=== PATIENT | female | born 1990 | race Caucasian/White ===

== ENCOUNTER 2018-05-16 05:43 | Observation (INO) | payer SELFPAY ==
[2018-05-16] MEDS ORDERED: LACTATED RINGERS 1,000 ML IV ONE (05:58)
[2018-05-16 07:20] LABS: Hematocrit 35.2 % (30.3-42.9); Hemoglobin 11.7 gm/dl (10.1-14.3); Mean Corpuscular HGB Conc 33 % (30-34); Mean Corpuscular Hemoglobin 28 pg (28-32); Mean Corpuscular Volume 84 fl (79-97); Platelet Count 361 K/mm3 (140-440); Red Blood Count 4.17 M/mm3 (3.65-5.03); Red Cell Distribution Width 13.7 % (13.2-15.2)
[2018-05-16] MEDS ORDERED: BRETHINE ONE (08:35)
[2018-05-16] MEDS ORDERED: BRETHINE SUB-Q ONE ×2 (08:41→12:00)
[2018-05-16] MEDS ORDERED: CELESTONE SOLUSPAN IM ONE (08:59)
[2018-05-16 09:46] LABS: Bacteria,Urine 2+ /HPF (Negative); Bilirubin,Urine NEG (Negative); Blood,Urine NEG (Negative); Calcium Oxalate Crystals,Urine 3+; Color,Urine Yellow (Yellow); Mucus,Urine 3+ /HPF; Urobilinogen,Urine < 2.0 mg/dL (<2.0)
[2018-05-16] MEDS ORDERED: TYLENOL PO ONE (09:53)
[2018-05-16] MEDS ORDERED: CLEOCIN PO SCH (10:30)
[2018-05-16] MEDS ORDERED: LACTATED RINGERS 1,000 ML IV SCH ×2 (11:00→13:00)
[2018-05-16] MEDS ORDERED: POLYCILLIN/NS 2 GM/100 ML 2 GM/100 ML BAG IV SCH (11:00)
--- NOTE | 2018-05-16 11:18 | Ultrasound Report ---
FINAL REPORT EXAM: OB US FOLLOW-UP PER FETUS HISTORY: position, estimated weigh and PETRA TECHNIQUE: Transabdominal OB ultrasound. PRIORS: None currently available. FINDINGS: Single intrauterine dates 30.1 weeks. BRITANY equals May 29, 2018. This is 22 days older compared to the LMP and discordant. EFW equals 3824 g. BPD: 37.3 weeks. HC: 36.3 weeks. AC: 41.4 weeks. FL: 37.2 weeks. Presentation: Cephalic. Placenta: Anterior fundal. Grade 1. No previa. heart rate: 141 BPM. Amniotic fluid index: 20.9 cm. Within normal limits. Closed cervix measures 4.4 cm. IMPRESSION: Single live intrauterine . Ultrasound gestational age is discordant with LMP age. Please correlate clinically. Vince level II finding report initiated.
[2018-05-16] MEDS ORDERED: TYLENOL PO PRN (11:54)
[2018-05-16 15:33] LABS: Rubella IgG Antibody Immune (Immune)
--- NOTE | 2018-05-16 15:33 | History and Physical Report ---
History of Present Illness Date of examination: 05/16/18 Date of admission: 05/16/18 12:52 Chief complaint: Contractions History of present illness: 28 year old presents to L&D with complaint of contractions since early this morning. Patient denies leaking of fluid or vaginal bleeding. Patient reports active movement. Patient states she is seen for care at [facility]. Patient states she has received regular prental care since her first trimester of . We do not have records available in L&D. Patient states she has not been given her records by the office to bring in. Patient states she had a first trimester US at [facility] and states she was given a due date of 06/20. By this EDC, patient would be 35 weeks gestation today. Patient states her last period was in the middle of September ( or Sep) 2016. This would agree with EDC of 06/20/18. Since no records were available, US was done in triage today, which shows EDC of 05/29/18 and EGA of 38 weeks, 1 day gestation. EFW by today's US is 8 lb. 7 oz. labs were also drawn after patient's arrival to hospital today due to no records available. Patient states she just took her 1 hour sugar test at clinic last week but does not know the result of the test yet. Patient denies complications with this . States the only medication she has been taking is vitamin ( but hasn't taken this in several months). Patient has a history of 2 previous NSVDs (8 years ago and 9 years ago) of normal sized babies. She has a history of one first trimester miscarriage. Patient denies any health problems other than obesity. She states she does not smoke, drink, or take drugs. She feels safe in her current relationship. She denies any history of surgeries. She denies any history of STDs or FRAMING CARPENTER problems. She states she has never had herpes. Patient reports a boil on her lower abdomen which has been there for several days and is now ready to drain. She reports discomfort associated with the boil. Has not had a culture done yet. Has not had any treatment for. Past History Past Medical History: other (obesity) Past Surgical History: no surgical history FRAMING CARPENTER History: denies: abnormal PAP smear, chlamydia, gonorrhea, hepatitis B, hepatitis C, herpes, HIV, syphilis Family/Genetic History: diabetes (maternal grandmother) Social history: , lives with family, full code. denies: smoking, alcohol abuse, prescription drug abuse, IV drug use - Obstetrical History Expected Date of Delivery: 06/20/18 Actual Gestation: 35 Week(s) 0 Day(s) : 4 Para: 2 Hx # Term Pregnancies: 2 Number of Pregnancies: 1 Spontaneous Abortions: 1 Induced : 0 Number of Living Children: 2 Medications and Allergies Allergies Allergy/AdvReac Type Severity Reaction Status Date / Time No Known Allergies Allergy Unverified 05/09/15 05:58 Home Medications Medication Instructions Recorded Confirmed Last Taken Type No Known Home Medications [No 05/16/18 05/16/18 Unknown History Reported Home Medications] Active Meds: Active Medications Acetaminophen (Tylenol) 650 mg PO Q4H PRN PRN Reason: Pain MILD(1-3)/Fever >100.5/ROTH Betamethasone Acet/Betameth SodPhos (Celestone Soluspan) 12 mg IM Q24HR RODRICK Stop: 05/17/18 10:01 Ampicillin Sodium (Polycillin/Ns 2 Gm/100 Ml) 2 gm in 100 mls @ 100 mls/hr IV ONCE RODRICK; Protocol Last Admin: 05/16/18 10:39 Dose: 100 mls/hr Lactated Ringer's (Lactated Ringers) 1,000 mls @ 125 mls/hr IV DIRECT RODRICK Last Admin: 05/16/18 12:05 Dose: 125 mls/hr Ampicillin Sodium (Ampicillin/Ns 1 Gm/50 Ml) 1 gm in 50 mls @ 100 mls/hr IV Q4HR RODRICK; Protocol Lactated Ringer's (Lactated Ringers) 1,000 mls @ 125 mls/hr IV DIRECT RODRICK Multivitamins/Iron/Calcium ( Vitamin) 1 each PO QDAY RODRICK Review of Systems All systems: negative (contractions, boil on lower abdominal skin) - Vital Signs Vital signs: Vital Signs Pulse BP Pulse Ox 95 H 143/83 99 05/16/18 06:23 05/16/18 06:23 05/16/18 06:23 Temp Pulse Resp BP Pulse Ox 99.3 F 102 H 18 127/69 99 05/16/18 09:56 05/16/18 12:20 05/16/18 09:56 05/16/18 12:20 05/16/18 08:39 - Physical Exam Breasts: Positive: deferred Cardiovascular: Regular rate, Normal S1, Normal S2, No murmurs Lungs: Positive: Clear to auscultation Abdomen: Positive: normal appearance, soft, normal bowel sounds. Negative: distention, tenderness, guarding, rigidity Genitourinary (Female): Positive: normal external genitalia. Negative: perineal /vulvar lesions Vagina: Positive: normal moisture Cervix: Positive: other (30/-4/posterior) Uterus: Positive: enlarged. Negative: tender (size>dates) Anus/Rectum: Positive: normal perianal skin Extremities: Positive: normal. Negative: tenderness, edema - Obstetrical FHR: category 1 Uterine Contraction Monitor Mode: External Cervical Dilatation: 3 Cervical Effacement Percentage: 30 station: -4 Uterine Contraction Frequency (min): Irregular, resolving Uterine Contraction Pattern: Irregular Uterine Contraction Intensity: Mild Results Result Diagrams: 05/16/18 06:19 Abnormal lab results 05/16/18 05/16/18 05/16/18 Range/Units 06:19 08:00 09:01 WBC 14.6 H (4.5-11.0) K/mm3 Hemoglobin A1c 6.3 H (4-6) % Urine WBC (Auto) 65.0 H (0.0-6.0) /HPF U Epithel Cells (Auto) 15.0 H (0-13.0) /HPF All other labs normal. Assessment and Plan A: at 35 weeks gestation. GBS unknown status. Threatened labor. Maternal obesity. Size greater than dates. P: Admit for observation. Continuous EFM. IV fluids. Terbutaline for maximum of 3 doses. Contact isolation for boil; boil cultured. GBS prophylaxis. Urine C&S. labs and US and hemoglobin A1C. Celestone IM. Consulted with Dr. Dawson by phone regarding this patient and she states she is in agreement with the above management plan. Discussed management plan with patient and her and they state they are also in agreement with management plan.
[2018-05-16 15:54] LABS: Hepatitis C Virus Antibody Non-Reactive (NonReactive)
[2018-05-16] MEDS ORDERED: AMPICILLIN/NS 1 GM/50 ML 1 GM/50 ML BAG IV SCH (15:56)
[2018-05-16 20:13] VITALS: BP 122/61
--- NOTE | 2018-05-16 20:26 | Discharge Summary ---
Providers - Providers Date of Admission: 05/16/18 12:52 Date of discharge: 05/16/18 Attending physician: JENNY CROSS MD None Primary care physician: JENNY CRSOS MD Hospitalization Reason for admission: other (threatened labor) Delivery: other (not delivered; contractions have resolved) Pertinent studies: Labs, ultrasound. Hospital course: Patient was observed in the hospital today for threatened contractions. Her cervix was very posterior but was 3 cm dilated, thick, and head was high. She had continuous EFM. After IV hydration and SQ Brethine, her contractions resolved. Her urine was not a good clean catch but showed leukocytes and bacteria. Patient declined cath specimen. Patient was given IV antibiotics for possible UTI and GBS prophylaxis in the event that her contractions continued (they have now resolved). Patient had a boil on her lower abdomen; this burst and drained during patient's hospital stay today; a culture of the pus was sent to the lab to check for MRSA. heart rate tracing is category 1; NST reactive. Patient has not had any contractions for several hours. She states she is not in pain. There is no vaginal bleeding and no leaking of fluid. Fetus is moving actively. There is no flank pain and no CVAT. There is no fever or chills and vital signs are stable. Patient requests to be discharged. Consulted with Dr. Cross regarding patient and she states it is OK to discharge patient to home. Discussed in detail with patient discharge instructions and warning signs. Advised pt. to start the Macrobid tonight and take every 12 hours for 7 days. Advised pt. she must increase her water intake to 8 cups per day. Advised pt. to rest and avoid IC. Advised pt. that she must follow up at her OB clinic tomorrow 05/17/18 and find out her sugar test result (her hemoglobin A1C today is in pre-diabetic range). Advised patient that she needs to have her urine re-checked as a clean catch at her appointment tomorrow. Advised patient to eat only healthy foods and to avoid sweets, fast foods, and processed foods. Advised pt. to count movements every day and to return immediately if movement is decreased. Discussed with pt. care of boil, need to keep the area clean and dry, need for good handwashing to prevent spread, need to return if symptoms do not resolve promptly. Advised pt. to also return if she thinks she is in labor or if her water breaks or she has any vaginal bleeding. Patient voiced understanding of all instructions given. Condition at discharge: Good Disposition: DC-01 TO HOME OR SELFCARE - Discharge Diagnoses (1) Threatened labor Status: Acute Qualifiers: Trimester: third trimester Qualified Code(s): O47.03 - False labor before 37 completed weeks of gestation, third trimester Plan - Provider Discharge Summary Activity: routine Diet: other (avoid processed foods, sugary foods, fast foods) Additional instructions: Take Macrobid 100 mg po BID for 7 days (Rx for Macrobid called to [facility] on [address]). Pt. states she will pick Rx up as soon as she is discharged and begin taking it tonight. Avoid sexual intercourse; rest at home. Avoid sweets, sugary foods, processed foods, fast foods. Count movement at least daily. If you do not get 10 movements within 2 hours, you must come in. Follow up with your [facility] in the morning (Thursday05/17/18). Get the result of your 1 hour sugar test tomorrow at OB clinic. Drink 8 cups of water every day. Complete your antibiotic (Macrobid). Do not miss any doses. If you develop fever , chills, nausea, vomiting, flank pain, contractions, or any other symptoms, come back in. If baby is not moving well, come back in. If you think you are in labor, come back in. If you develop a headache, visual disturbance, nausea or vomiting, or swelling, come back in. - Follow up plan Follow up: JENNY CROSS MD [Primary Care Provider] - 05/17/18
[2018-05-17] MEDS ORDERED: PRENATAL VITAMIN PO SCH (10:00)
[2018-05-17] MEDS ORDERED: CELESTONE SOLUSPAN IM SCH (10:00)
== END 2018-05-16 21:30 | disposition home or self-care (01) ==
LOC: TRG 05:43 → LD 08:58 → TRG 12:52
PROVIDERS: ADMIT Obstetrics & Gynecology; ATTEND Obstetrics & Gynecology
DX: O62.9 Abnormality of forces of labor, unspecified (principal); O60.03 Preterm labor without delivery, third trimester; Z3A.35 35 weeks gestation of pregnancy
CPT/HCPCS: 36415; 76816; 81001; 83036; 85027; 86592; 86706; 86762; 86803; 86850; 86900; 86901; 87086; 87116; 87806; 96361; 96365; 96372; 96375; G0378; J0290; J0702; J3105; J7120

== ENCOUNTER 2018-05-20 18:15 | Outpatient (CLI) | payer SELFPAY ==
[2018-05-20] MEDS ORDERED: LACTATED RINGERS 500 ML IV ONE (18:53)
[2018-05-20 19:27] LABS: Bilirubin,Urine NEG (Negative); Blood,Urine NEG (Negative); Color,Urine Yellow (Yellow); Protein,Urine <15 mg/dL mg/dL (Negative); Urobilinogen,Urine < 2.0 mg/dL (<2.0)
[2018-05-20] MEDS ORDERED: BRETHINE ONE (20:54)
[2018-05-20 21:07] VITALS: BP 131/75
--- NOTE | 2018-05-20 21:25 | Event Note ---
28yo at 35 4/7weeks BRITANY 06/20/19 presents complaining of contractions and pelvic pressure.F She was observed on L&D 05/16/19 for contractions as well that resolved. Her cervix remains the same unchanged /-3. She received betamethasone for lung maturity and was discharged home undelivered. She was treated for a UTI. Today she denies loss of fluid, vaginal bleeding and reports good movement. She is aware her baby is large for gestational age. She states she has a history of gestational diabetes mellitus on no medications. She reports eating at least 3 tortillas per day. She states she his a patient of [facility] on [address] Murphy. Vitals Vital Signs Temp 98.5 F 05/20/18 18:57 Pulse 97 H 05/20/18 21:11 Resp 20 05/20/18 18:57 BP 131/75 05/20/18 21:11 Pulse Ox 97 05/20/18 20:06 Intake & Output 05/19/18 05/20/18 05/20/18 23:59 11:59 23:59 Weight 108.862 kg Laboratory Results - last 24 hr 05/20/18 18:45 Urine Color Yellow Urine Turbidity Clear Urine pH 6.0 Ur Specific Willard 1.012 Urine Protein <15 mg/dl Urine Glucose (UA) Neg Urine Ketones Neg Urine Blood Neg Urine Nitrite Neg Urine Bilirubin Neg Urine Urobilinogen < 2.0 Ur Leukocyte Esterase Mod Urine WBC (Auto) 7.0 H Urine RBC (Auto) 3.0 U Epithel Cells (Auto) 6.0 FHT 150s Category I Contractions Q 1-2min Plan 1. IV hydration 2. Terbutaline IM x 1 3. Monitor for sx of labor 4. s/p Betamethasone x 1. Will give second dose today. 5. If no labor, discharge home with labor precautions.
[2018-05-20] MEDS ORDERED: CELESTONE SOLUSPAN IM ONE (21:26)
[2018-05-20] MEDS ORDERED: BRETHINE SUB-Q ONE (21:50)
[2018-05-20] MEDS ORDERED: LACTATED RINGERS 1,000 ML IV ONE (21:50)
== END 2018-05-20 22:21 | disposition home or self-care (01) ==
LOC: TRG 18:15
PROVIDERS: ATTEND Obstetrics & Gynecology
DX: O47.03 False labor before 37 completed weeks of gestation, third trimester (principal); Z3A.35 35 weeks gestation of pregnancy
CPT/HCPCS: 59025; 81001; J0702; J3105; J7120

== ENCOUNTER 2018-06-07 15:55 | Inpatient (IN) | payer OTHER ==
[2018-06-07] MEDS ORDERED: LACTATED RINGERS 1,000 ML ONE (16:19)
[2018-06-07] MEDS ORDERED: XYLOCAINE 2% INFILTRATI ONE (16:46)
[2018-06-07] MEDS ORDERED: MINERAL OIL PO PRN (16:46)
[2018-06-07] MEDS ORDERED: BRETHINE IVP PRN (16:46)
[2018-06-07] MEDS ORDERED: BRETHINE SUB-Q PRN (16:46)
[2018-06-07] MEDS ORDERED: POLYCILLIN/NS 2 GM/100 ML 2 GM/100 ML BAG IV ONE (16:46)
[2018-06-07] MEDS ORDERED: ePHEDrine SULFATE IV PRN ×2 (16:46→20:20)
[2018-06-07] MEDS ORDERED: PITOCin/NS 30 UNIT/500ML 30 UNITS/500 ML BAG IV SCH (17:00)
[2018-06-07] MEDS ORDERED: PITOCin/NS 20 UNIT/1000ML DRIP 20 UNITS/1,000 ML BAG IV SCH (17:00)
[2018-06-07 17:37] LABS: Hemoglobin 11.2 gm/dl (10.1-14.3); Mean Corpuscular HGB Conc 33 % (30-34); Mean Corpuscular Hemoglobin 27 pg (28-32); Mean Corpuscular Volume 83 fl (79-97); Platelet Count 340 K/mm3 (140-440); Red Blood Count 4.11 M/mm3 (3.65-5.03); Red Cell Distribution Width 15.2 % (13.2-15.2)
[2018-06-07] MEDS ORDERED: STADOL IV PRN (17:38)
[2018-06-07] MEDS ORDERED: SUBLIMAZE IV PRN (17:38)
--- NOTE | 2018-06-07 18:47 | History and Physical Report ---
History of Present Illness Date of examination: 06/07/18 Date of admission: 06/07/18 16:45 Chief complaint: Leaking fluid History of present illness: 27yo G 4 P 2 0 1 2 at 38 weeks 1 day here with c/o leaking fluid since 14:20. SROM (light meconium) confirmed in triage by RN. She reports +FMs & UCs but denies VB. She is a [facility] patient who initiated care at 6 weeks gestation. Her course was complicated by obesity. record is available and reviewed. She has had 2 previous SVDs; uncomplicated. GBS is positive. Past History Past Medical History: other (h/o gestational diabetes - 1st ) Past Surgical History: no surgical history Family/Genetic History: none Social history: single, full code - Obstetrical History Expected Date of Delivery: 06/20/18 Actual Gestation: 38 Week(s) 1 Day(s) : 4 Para: 2 Hx # Term Pregnancies: 2 Number of Pregnancies: 0 Spontaneous Abortions: 1 Induced : 0 Number of Living Children: 2 Medications and Allergies Allergies Allergy/AdvReac Type Severity Reaction Status Date / Time No Known Allergies Allergy Verified 05/20/18 18:53 Home Medications Medication Instructions Recorded Confirmed Last Taken Type Macrobid 100 mg Capsule 100 mg PO BID 05/20/18 05/20/18 05/20/18 09:00 History Active Meds: Active Medications Butorphanol Tartrate (Stadol) 2 mg IV Q2H PRN PRN Reason: Pain , Severe (7-10) Ephedrine Sulfate (Ephedrine Sulfate) 10 mg IV Q2M PRN PRN Reason: Hypotension Fentanyl (Sublimaze) 100 mcg IV Q2H PRN PRN Reason: Labor Pain Lactated Ringer's (Lactated Ringers) 1,000 mls @ 125 mls/hr IV DIRECT RODRICK Oxytocin/Sodium Chloride (Pitocin/Ns 20 Unit/1000ml Drip) 20 units in 1,000 mls @ 125 mls/hr IV DIRECT RODRICK Oxytocin/Sodium Chloride (Pitocin/Ns 30 Unit/500ml) 30 units in 500 mls @ 1 mls /hr IV TITR RODRICK; Protocol Ampicillin Sodium (Ampicillin/Ns 1 Gm/50 Ml) 1 gm in 50 mls @ 100 mls/hr IV Q4HR RODRICK; Protocol Mineral Oil (Mineral Oil) 30 ml PO QHS PRN PRN Reason: Constipation Terbutaline Sulfate (Brethine) 0.25 mg SUB-Q ONCE PRN PRN Reason: Hyperstimulation/Hypertonicity Terbutaline Sulfate (Brethine) 0.25 mg IVP ONCE PRN PRN Reason: Hyperstimulation/Hypertonicity Review of Systems All systems: negative - Vital Signs Vital signs: Vital Signs Pulse BP 118 H 143/80 06/07/18 16:10 06/07/18 16:10 Temp Pulse Resp BP Pulse Ox 98.1 F 107 H 18 131/61 81 L 06/07/18 16:34 06/07/18 18:40 06/07/18 16:34 06/07/18 16:24 06/07/18 18:40 - Obstetrical FHR: category 2 FHR comments: baseline 165, mod variability, + accels, intermittent variable decels Uterine Contraction Monitor Mode: External Cervical Dilatation: 4 (per RN) Cervical Effacement Percentage: 80 (per RN) station: -2(per RN) Uterine Contraction Frequency (min): 1-2 Uterine Contraction Pattern: Regular Results Result Diagrams: 06/07/18 16:24 Abnormal lab results 06/07/18 Range/Units 16:24 WBC 13.0 H (4.5-11.0) K/mm3 MCH 27 L (28-32) pg All other labs normal. Assessment and Plan - Patient Problems (1) 38 weeks gestation of Current Visit: Yes Status: Acute (2) SROM (spontaneous rupture of membranes) Current Visit: Yes Status: Acute (3) Active labor at term Current Visit: Yes Status: Acute Plan to address problem: Admit to L&D with routine labor orders Anticipate vaginal delivery (4) GBS (group B Streptococcus carrier), +RV culture, currently Current Visit: Yes Status: Acute Plan to address problem: Start Ampicillin for GBS prophylaxis
[2018-06-07] MEDS: LACTATED RINGERS 1,000 ML IV SCH ×2 (19:48→20:26)
[2018-06-07] MEDS ORDERED: NARCAN 2 MG/2 ML IV PRN (20:20)
--- NOTE | 2018-06-07 20:20 | Anesthesia Consultation ---
Anesthesia Consult and Med Hx Date of service: 06/07/18 - Airway Anesthetic Teeth Evaluation: Good ROM Head & Neck: Adequate Mental/Hyoid Distance: Adequate Mallampati Class: Class III Intubation Access Assessment: Possibly Difficult - Pre-Operative Health Status ASA Pre-Surgery Classification: ASA3 Proposed Anesthetic Plan: Epidural, Spinal - Pulmonary Hx Asthma: No COPD: No Hx Pneumonia: No - Cardiovascular System Hx Hypertension: No - Central Nervous System Hx Seizures: No Hx Psychiatric Problems: No - Endocrine Hx Renal Disease: No Hx End Stage Renal Disease: No Hx Hypothyroidism: No Hx Hyperthyroidism: No - Hematic Hx Anemia: No Hx Sickle Cell Disease: No - Other Systems Hx Alcohol Use: No Hx Obesity: Yes (BMI 42.9)
[2018-06-07] MEDS ORDERED: fentaNYL-BUPIV 2 MCG/ML-0.125% 200 MCG/100 ML BAG EPIDURAL SCH (21:00)
[2018-06-07] MEDS: AMPICILLIN/NS 1 GM/50 ML 1 GM/50 ML BAG IV SCH (21:23)
[2018-06-08] MEDS: AMPICILLIN/NS 1 GM/50 ML 1 GM/50 ML BAG IV SCH (00:30)
[2018-06-08] MEDS ORDERED: XYLOCAINE 2% INFILTRATI ONE (02:45)
--- NOTE | 2018-06-08 03:27 | Procedure Note ---
OB Delivery Note - Delivery Date of Delivery: 06/08/18 (02:23) Surgeon: AG PATEL (CNM) Estimated blood loss: other (400cc) - Vaginal Delivery presentation: vertex Delivery position: OA Intrapartum events: meconium, shoulder dystocia (resolved in <1 min with Joey maneuver) Delivery induction: none Delivery augmentation: pitocin Delivery monitor: external FHT, external uterine Route of delivery: Delivery placenta: spontaneous (02:39) Delivery cord: nuchal cord (x1; easily reduced prior to delivery of anterior shoulder), 3 umbilical vessels Episiotomy: none Delivery laceration: 1st degree (vaginal - hemostatic; not repaired) Anesthesia: epidural Delivery comments: of a non-vigorous 10 lbs 1 oz female on 06/08/18 @ 02:23. After delivery of head, nuchal cord x1 noted and easily reduced. With gentle traction anterior shoulder undelivered. Shoulder dystocia called and was resolved in less than 1 min with McRobert's Maneuver. Umbilical cord immediately double-clamped, cut and baby handed to awaiting NICU team for resuscitation. Cord gases collected. Spontaneous delivery of placenta, [place]-side presenting @ 02:39. Heavy lochia present. Fundal massage and IV Pitocin bolus initiated. Fundus F/ML/U. Large blood clots manually expressed. Patient tolerated the procedure well. Placenta intact; sent to pathology. 1st degree vaginal laceration present; was hemostatic so not repaired. Mom and baby in stable condition. - A at 1 minute: 4 at 5 minutes: 9 Infant Gender: Female (10 lbs 1 oz (4561 gm); 21 in)
[2018-06-08] MEDS ORDERED: MILK OF MAGNESIA PO PRN (03:31)
[2018-06-08] MEDS ORDERED: TUCKS PAD TP PRN (03:31)
[2018-06-08] MEDS ORDERED: PHENERGAN PR PRN (03:31)
[2018-06-08] MEDS ORDERED: BENADRYL PO PRN (03:31)
[2018-06-08] MEDS ORDERED: NORCO 5/325 PO PRN (03:31)
[2018-06-08] MEDS ORDERED: DULCOLAX PR PRN (03:31)
[2018-06-08] MEDS ORDERED: ZOFRAN IV PRN (03:31)
[2018-06-08] MEDS ORDERED: PHENERGAN PO PRN (03:31)
[2018-06-08] MEDS ORDERED: TYLENOL PO PRN (03:31)
[2018-06-08] MEDS ORDERED: LANSINOH TP PRN (03:31)
[2018-06-08] MEDS ORDERED: SODIUM CHLORIDE FLUSH SYRINGE 10 ML IV PRN (04:00)
[2018-06-08] MEDS: MOTRIN PO SCH ×3 (05:30→18:10)
[2018-06-08] MEDS: PRENATAL VITAMIN PO SCH (12:04)
[2018-06-08] MEDS: FEOSOL PO SCH (12:04)
[2018-06-08 20:38] LABS: Hematocrit 29.5 % (30.3-42.9); Hemoglobin 9.8 gm/dl (10.1-14.3)
[2018-06-09] MEDS: MOTRIN PO SCH ×4 (00:31→22:21)
--- NOTE | 2018-06-09 10:57 | Progress Note ---
Assessment and Plan A: PP Day #1 Stable P: Follow Routine Portpartum Orders D/C home in the AM RTO in 6 Weeks Subjective - Subjective Date of service: 06/09/18 Patient reports: appetite normal, voiding normally, pain well controlled, flatus , ambulating normally [place]: in NICU, other (has heart murmur; to follow with [facility] in 3 months) Objective - Vital Signs Latest vital signs: Vital Signs Temp Pulse Resp BP BP Pulse Ox 06/09/18 08:30 98.2 F 06/09/18 08:06 83 18 136/85 98 06/09/18 00:00 98.3 F 88 18 138/81 06/08/18 15:45 78 99 06/08/18 15:44 99.0 F 83 18 133/85 99 Intake and Output 06/08/18 06/09/18 06/09/18 22:59 06:59 14:59 Intake Total 720 Output Total 3 Balance 717 Intake: Oral 720 Output: Urine 3 Void 3 Other: Total, Intake Amount 240 Total, Output Amount 3 # Voids Void 1 1 - Exam Breasts: Present: normal Cardiovascular: Present: Regular rate Lungs: Present: Clear to auscultation, Normal air movement Abdomen: Present: normal appearance, soft, normal bowel sounds Uterus: Present: normal, firm, fundal height below umbilicus Extremities: Present: normal - Labs Labs: Abnormal lab results 06/08/18 Range/Units 20:14 Hgb 9.8 L (10.1-14.3) gm/dl Hct 29.5 L (30.3-42.9) %
--- NOTE | 2018-06-09 10:59 | Discharge Summary ---
Providers - Providers Date of Admission: 06/07/18 16:45 Date of discharge: 06/10/18 Attending physician: JENNY CROSS MD Primary care physician: JENNY CROSS MD Hospitalization Reason for admission: rupture of membranes Delivery: Episiotomy: none Laceration: none Other procedures: none complications: none Discharge diagnosis: IUP at term delivered [place] baby: female Condition at discharge: Good Disposition: DC-01 TO HOME OR SELFCARE Plan - Provider Discharge Summary Activity: routine, no sex for 6 weeks, no heavy lifting 4 weeks, no strenuous exercise Diet: routine Instructions: routine Additional instructions: [] Smoking cessation referral if applicable(refer to patient education folder for contact #) [] Refer to [facility]'s [facility] Booklet Call your doctor immediately for: * Fever > 100.5 * Heavy vaginal bleeding ( >1 pad per hour) * Severe persistent headache * Shortness of breath * Reddened, hot, painful area to leg or breast * Drainage or odor from incision. * Keep incision clean and dry at all times and follow doctor's instructions regarding bathing/showering - Follow up plan Follow up: JENNY CROSS MD [Primary Care Provider] - 6 Weeks
[2018-06-09] MEDS: FEOSOL PO SCH ×2 (14:12→22:19)
[2018-06-09] MEDS: PRENATAL VITAMIN PO SCH (14:12)
[2018-06-10] MEDS: MOTRIN PO SCH ×2 (06:07→12:19)
[2018-06-10 08:17] VITALS: BP 137/77
[2018-06-10] MEDS: FEOSOL PO SCH (12:19)
[2018-06-10] MEDS: PRENATAL VITAMIN PO SCH (12:20)
== END 2018-06-10 14:45 | disposition home or self-care (01) | DRG 775 ==
LOC: TRG 15:55 → UNDOADMIN 15:56 → LD 15:56 → TRG 16:34 → LD 16:45 → OB 06-08 04:46
PROVIDERS: ADMIT Obstetrics & Gynecology; ATTEND Obstetrics & Gynecology
PROC: 10E0XZZ Delivery of Products of Conception, External Approach (ICD-10-PCS; principal; 2018-06-08)
PROC: 3E0R3BZ Introduction of Anesthetic Agent into Spinal Canal, Percutaneous Approach (ICD-10-PCS; 2018-06-08)
PROC: 00HU33Z Insertion of Infusion Device into Spinal Canal, Percutaneous Approach (ICD-10-PCS; 2018-06-08)
PROC: 4A033R1 Measurement of Arterial Saturation, Peripheral, Percutaneous Approach (ICD-10-PCS; 2018-06-08)
DX: O77.0 Labor and delivery complicated by meconium in amniotic fluid (principal); Z68.41 Body mass index [BMI] 40.0-44.9, adult; O99.824 Streptococcus B carrier state complicating childbirth; Z3A.38 38 weeks gestation of pregnancy; Z37.0 Single live birth; O99.214 Obesity complicating childbirth; E66.9 Obesity, unspecified; O66.0 Obstructed labor due to shoulder dystocia; O70.0 First degree perineal laceration during delivery; O69.81X0 Labor and delivery complicated by cord around neck, without compression, not applicable or unspecified
CPT/HCPCS: 36415; 82803; 85014; 85018; 85027; 86592; 86850; 86900; 86901; 88307; 99211; G0463; J0290; J2590; J7120

== ENCOUNTER 2021-01-27 14:34 | Inpatient (IN) | payer OTHER ==
[2021-01-27] MEDS ORDERED: MINERAL OIL 30 ML ORAL LIQD PO PRN (17:38)
[2021-01-27] MEDS ORDERED: TERBUTALINE 1 MG/1 ML INJ SUB-Q PRN (17:38)
[2021-01-27] MEDS ORDERED: fentaNYL 100 MCG/2 ML INJ IV PRN (17:38)
[2021-01-27] MEDS ORDERED: LIDOCAINE (2%) 20 MG/1 ML VIAL 20 ML MDV INFILTRATI ONE (17:38)
[2021-01-27] MEDS ORDERED: AMPICILLIN/NS 2 GM/100 ML 2 GM/100 ML BAG IV ONE (17:38)
[2021-01-27] MEDS ORDERED: ePHEDrine SULFATE 50 MG/1 ML INJ IV PRN (17:38)
--- NOTE | 2021-01-27 17:48 | History and Physical Report ---
History of Present Illness Date of examination: 01/27/21 Date of admission: 12/30/2020 Chief complaint: Contractions History of present illness: 30 year old presents to L&D with contractions. No LOF or VB. Active movement. Observed in triage and cervix changed from 3 cm to 4 cm. Patient was then admitted to L&D. Patient received care at [facility] and she brings records with her. LMP 05/02/2020. EDC 02/06/2021. significant for the following: GDM (on Glyburide, pt. states blood sugars not well controlled), obesity, history of macrosomic baby with her last (10 lb) with shoulder dystocia at delivery, LGA with this (greater than 90th percentile and AC greater than 90th percentile according to records), UTI (treated with Macrobid). labs are as follows: O+, antibody screen negative, rubella immune, hepatitis B surface antigen negative, HIV negative, RPR nonreactive, gonorrhea negative, chlamydia negative, GBS negative 1 hour sugar test 177 (followed by 3 hour OGTT with 2 abnormal values), AFP negative, cystic fibrosis negative, fragile X negative, pap smear negative. Past History Past Medical History: other (obesity, history of GDM with all previous pregnancies and with current ) Past Surgical History: no surgical history [employer] P[employer]OR History: denies: abnormal PAP smear, chlamydia, gonorrhea, hepatitis B, hepatitis C, herpes, HIV, syphilis, trichomonas Family/Genetic History: diabetes, hypertension, cancer Social history: lives with family, full code. denies: smoking, alcohol abuse, prescription drug abuse, IV drug use - Obstetrical History Expected Date of Delivery: 02/06/21 Actual Gestation: 38 Week(s) 4 Day(s) : 6 Para: 3 Hx # Term Pregnancies: 3 Number of Pregnancies: 0 Spontaneous Abortions: 2 Induced : 0 Number of Living Children: 3 Medications and Allergies Allergies Allergy/AdvReac Type Severity Reaction Status Date / Time No Known Allergies Allergy Verified 05/20/18 18:53 Active Meds: Active Medications Ephedrine Sulfate (Ephedrine Sulfate 50 Mg/1 Ml Inj) 10 mg IV Q2M PRN PRN Reason: Hypotension Fentanyl (Fentanyl 100 Mcg/2 Ml Inj) 100 mcg IV Q2H PRN PRN Reason: Pain,Severe (7-10) LABOR PAIN Lactated Ringer's (Lactated Ringers) 1,000 mls @ 125 mls/hr IV DIRECT RODRICK Oxytocin/Sodium Chloride (Pitocin/Ns 30 Unit/500ml) 30 units in 500 mls @ 40 mls/hr IV TITR RODRICK; Protocol Ampicillin Sodium (Ampicillin/Ns 2 Gm/100 Ml) 2 gm in 100 mls @ 100 mls/hr IV ONCE ONE; Protocol Stop: 01/27/21 18:37 Ampicillin Sodium (Ampicillin/Ns 1 Gm/50 Ml) 1 gm in 50 mls @ 100 mls/hr IV Q4H RODRICK; Protocol Lidocaine (Lidocaine (2%) 20 Mg/1 Ml Vial 20 Ml Mdv) 20 ml INFILTRATI ONCE ONE Stop: 01/27/21 17:39 Mineral Oil (Mineral Oil 30 Ml Oral Liqd) 30 ml PO QHS PRN PRN Reason: Constipation Terbutaline Sulfate (Terbutaline 1 Mg/1 Ml Inj) 0.25 mg SUB-Q ONCE PRN PRN Reason: Hyperstimulation/Hypertonicity Review of Systems All systems: negative (contractions) - Vital Signs Vital signs: Vital Signs Pulse BP 99 H 137/65 01/27/21 15:05 01/27/21 15:05 Temp Pulse Resp BP Pulse Ox 98.5 F 90 20 137/65 99 01/27/21 15:13 01/27/21 17:43 01/27/21 15:13 01/27/21 15:05 01/27/21 17:43 - Physical Exam Abdomen: Positive: normal appearance, soft. Negative: distention, tenderness, guarding, rigidity Genitourinary (Female): Positive: normal external genitalia, normal perenium. Negative: perineal/vulvar lesions Vagina: Positive: normal moisture, other (ROM plus negative) Uterus: Positive: enlarged. Negative: tender Anus/Rectum: Positive: normal perianal skin Extremities: Positive: edema (mild pedal edema). Negative: tenderness - Obstetrical FHR: category 1 Uterine Contraction Monitor Mode: External Cervical Dilatation: 4 Cervical Effacement Percentage: 50 station: -3 Uterine Contraction Pattern: Regular Uterine Contraction Intensity: Mild Results Abnormal lab results 01/27/21 Range/Units 16:03 POC Glucose 62 L (70-105) mg/dL All other labs normal. Assessment and Plan A: at 38 weeks, 4 days gestation. Active labor. GBS negative. Gestational diabetes. History of shoulder dystocia with a previous delivery. P: Admit. EFM. Blood sugars every 2 hours; hemoglobin A1C. Ultrasound for EFW. Consulted with Dr. Camara re: this patient.
[2021-01-27 18:43] LABS: Hematocrit 37.2 % (30.3-42.9); Hemoglobin 12.7 gm/dl (10.1-14.3); Mean Corpuscular HGB Conc 34 % (30-34); Mean Corpuscular Volume 84 fl (79-97); Platelet Count 336 K/mm3 (140-440); Red Cell Distribution Width 13.7 % (13.2-15.2)
--- NOTE | 2021-01-27 19:13 | Event Note ---
Date: 01/27/21 US done; US tech states EFW is 3455 grams (7 lb. [address] Camara of above. Informed patient of the above. Patient states she wants to labor and have a vaginal . Discussed with patient possible risks of shoulder dystocia with GDM and with history of previous shoulder dystocia. Patient states she understands and accepts these risks and wants to labor and have a vaginal .
[2021-01-27] MEDS: LACTATED RINGERS 1,000 ML IV SCH (20:19)
--- NOTE | 2021-01-27 20:48 | Ultrasound Report ---
US OB follow up INDICATION / CLINICAL INFORMATION: EFW. COMPARISON: None available. FINDINGS: A single live fetus is seen in cephalic presentation with heart rate 138. BPD is 9.5 equaling 38 weeks 5 days Head circumference is 34.0 equaling 39 weeks 0 days Abdominal circumference is 34.3 equaling 38 weeks 1 day Femur length 7.4 equaling 38 weeks 0 days Estimated weight is 3455 g. HC/AC ratio equals 0.99. Cephalic index is 84.8 IMPRESSION: Single live fetus of approximately 38 weeks 3 days in cephalic presentation with heart rate of 138. Estimated weight is 3455 g. Estimated weight is 60% Signer Name: Davin Benavides MD Signed: 01/27/2021 8:44 PM Workstation Name: [id number]
--- NOTE | 2021-01-27 21:24 | Event Note ---
Date: 01/27/21 SVE .
[2021-01-27] MEDS ORDERED: AMPICILLIN/NS 1 GM/50 ML 1 GM/50 ML BAG IV SCH (22:00)
--- NOTE | 2021-01-28 01:03 | Event Note ---
Date: 01/28/21 SVE /-3. Category 1 FHR tracing. Patient declined augmentation of labor.
--- NOTE | 2021-01-28 05:30 | Event Note ---
Date: 01/28/21 SVE at 5:14: 8/80/-2. Category 1 FHR tracing.
--- NOTE | 2021-01-28 09:08 | Progress Note ---
Assessment and Plan A: IUP@ 38.4 wks GDM, obesity light mec P: AROM (light mec) Notify NICU Continue Accuchecks Anticipate Subjective - Subjective Date of service: 01/28/21 Principal diagnosis: IUP@ 38.4 wks with GDM Patient reports: movement normal Objective - Vital Signs Vital Signs: Vital Signs - 12hr 01/27/21 01/27/21 01/27/21 23:00 23:45 23:50 Temperature 98.3 F Pulse Rate 81 81 Respiratory 16 Rate Blood Pressure Blood Pressure [Left] O2 Sat by Pulse 100 99 Oximetry 01/27/21 01/28/21 01/28/21 23:55 00:00 00:05 Temperature Pulse Rate 80 81 81 Respiratory Rate Blood Pressure Blood Pressure [Left] O2 Sat by Pulse 98 98 99 Oximetry 01/28/21 01/28/21 01/28/21 00:10 00:15 00:20 Temperature Pulse Rate 81 80 86 Respiratory Rate Blood Pressure Blood Pressure [Left] O2 Sat by Pulse 98 98 99 Oximetry 01/28/21 01/28/21 01/28/21 00:25 00:30 00:35 Temperature Pulse Rate 80 89 83 Respiratory Rate Blood Pressure Blood Pressure [Left] O2 Sat by Pulse 99 98 98 Oximetry 01/28/21 01/28/21 01/28/21 00:40 00:45 00:50 Temperature Pulse Rate 80 80 76 Respiratory Rate Blood Pressure Blood Pressure [Left] O2 Sat by Pulse 98 98 98 Oximetry 01/28/21 01/28/21 01/28/21 01:04 01:07 01:09 Temperature Pulse Rate 87 92 H 101 H Respiratory Rate Blood Pressure 128/79 Blood Pressure [Left] O2 Sat by Pulse 99 98 Oximetry 01/28/21 01/28/21 01/28/21 01:14 01:19 01:24 Temperature Pulse Rate 79 79 77 Respiratory Rate Blood Pressure Blood Pressure [Left] O2 Sat by Pulse 98 98 99 Oximetry 01/28/21 01/28/21 01/28/21 01:29 01:34 01:39 Temperature Pulse Rate 83 82 79 Respiratory Rate Blood Pressure Blood Pressure [Left] O2 Sat by Pulse 99 99 99 Oximetry 01/28/21 01/28/21 01/28/21 01:40 01:44 01:49 Temperature Pulse Rate 77 79 83 Respiratory Rate Blood Pressure 142/74 Blood Pressure [Left] O2 Sat by Pulse 98 98 Oximetry 01/28/21 01/28/21 01/28/21 01:54 01:59 02:04 Temperature Pulse Rate 77 76 91 H Respiratory Rate Blood Pressure Blood Pressure [Left] O2 Sat by Pulse 98 98 98 Oximetry 01/28/21 01/28/21 01/28/21 02:09 02:14 02:19 Temperature Pulse Rate 82 80 81 Respiratory Rate Blood Pressure 118/65 Blood Pressure [Left] O2 Sat by Pulse 98 97 97 Oximetry 01/28/21 01/28/21 01/28/21 02:24 02:29 02:34 Temperature Pulse Rate 85 79 84 Respiratory Rate Blood Pressure Blood Pressure [Left] O2 Sat by Pulse 96 97 98 Oximetry 01/28/21 01/28/21 01/28/21 02:39 02:40 02:44 Temperature Pulse Rate 82 79 86 Respiratory Rate Blood Pressure 107/54 Blood Pressure [Left] O2 Sat by Pulse 98 98 Oximetry 01/28/21 01/28/21 01/28/21 02:49 02:54 02:59 Temperature Pulse Rate 90 83 86 Respiratory Rate Blood Pressure Blood Pressure [Left] O2 Sat by Pulse 98 98 98 Oximetry 01/28/21 01/28/21 01/28/21 03:04 03:09 03:14 Temperature Pulse Rate 91 H 79 91 H Respiratory Rate Blood Pressure 112/59 Blood Pressure [Left] O2 Sat by Pulse 99 99 98 Oximetry 01/28/21 01/28/21 01/28/21 03:19 03:24 03:29 Temperature Pulse Rate 81 102 H 80 Respiratory Rate Blood Pressure Blood Pressure [Left] O2 Sat by Pulse 99 99 98 Oximetry 01/28/21 01/28/21 01/28/21 03:30 03:34 03:39 Temperature 98 F Pulse Rate 89 95 H Respiratory 18 Rate Blood Pressure 123/70 Blood Pressure [Left] O2 Sat by Pulse 99 100 Oximetry 01/28/21 01/28/21 01/28/21 03:44 03:49 03:54 Temperature Pulse Rate 79 82 84 Respiratory Rate Blood Pressure Blood Pressure [Left] O2 Sat by Pulse 98 99 98 Oximetry 01/28/21 01/28/21 01/28/21 03:59 04:04 04:09 Temperature Pulse Rate 89 76 72 Respiratory Rate Blood Pressure 117/62 Blood Pressure [Left] O2 Sat by Pulse 99 98 99 Oximetry 01/28/21 01/28/21 01/28/21 04:14 04:19 04:30 Temperature Pulse Rate 78 80 86 Respiratory Rate Blood Pressure Blood Pressure [Left] O2 Sat by Pulse 97 97 100 Oximetry 01/28/21 01/28/21 01/28/21 04:35 04:39 04:40 Temperature Pulse Rate 76 74 74 Respiratory Rate Blood Pressure 118/62 Blood Pressure [Left] O2 Sat by Pulse 98 99 Oximetry 01/28/21 01/28/21 01/28/21 04:45 04:50 04:55 Temperature Pulse Rate 71 78 81 Respiratory Rate Blood Pressure Blood Pressure [Left] O2 Sat by Pulse 98 98 98 Oximetry 01/28/21 01/28/21 01/28/21 05:00 05:05 05:09 Temperature Pulse Rate 84 75 74 Respiratory Rate Blood Pressure 115/56 Blood Pressure [Left] O2 Sat by Pulse 98 98 Oximetry 01/28/21 01/28/21 01/28/21 05:10 05:15 05:20 Temperature Pulse Rate 75 98 H 74 Respiratory Rate Blood Pressure Blood Pressure [Left] O2 Sat by Pulse 99 100 100 Oximetry 01/28/21 01/28/21 01/28/21 05:25 05:30 05:35 Temperature Pulse Rate 71 72 83 Respiratory Rate Blood Pressure Blood Pressure [Left] O2 Sat by Pulse 99 98 99 Oximetry 01/28/21 01/28/21 01/28/21 05:39 05:40 05:45 Temperature Pulse Rate 76 70 77 Respiratory Rate Blood Pressure 143/72 Blood Pressure [Left] O2 Sat by Pulse 99 99 Oximetry 01/28/21 01/28/21 01/28/21 05:50 05:55 06:00 Temperature Pulse Rate 77 75 77 Respiratory Rate Blood Pressure Blood Pressure [Left] O2 Sat by Pulse 99 99 99 Oximetry 01/28/21 01/28/21 01/28/21 06:05 06:10 06:15 Temperature Pulse Rate 102 H 69 70 Respiratory Rate Blood Pressure 131/60 Blood Pressure [Left] O2 Sat by Pulse 99 99 98 Oximetry 01/28/21 01/28/21 01/28/21 06:20 06:25 06:30 Temperature Pulse Rate 73 74 73 Respiratory Rate Blood Pressure Blood Pressure [Left] O2 Sat by Pulse 98 99 98 Oximetry 01/28/21 01/28/21 01/28/21 06:35 06:39 06:40 Temperature Pulse Rate 97 H 79 80 Respiratory Rate Blood Pressure 125/72 Blood Pressure [Left] O2 Sat by Pulse 99 99 Oximetry 01/28/21 01/28/21 01/28/21 06:45 06:50 06:55 Temperature Pulse Rate 77 74 72 Respiratory Rate Blood Pressure Blood Pressure [Left] O2 Sat by Pulse 99 98 98 Oximetry 01/28/21 01/28/21 01/28/21 07:00 07:05 07:09 Temperature Pulse Rate 89 86 75 Respiratory Rate Blood Pressure 142/80 Blood Pressure [Left] O2 Sat by Pulse 100 100 Oximetry 01/28/21 01/28/21 01/28/21 07:10 07:12 07:13 Temperature 98.3 F Pulse Rate 81 77 87 Respiratory 20 Rate Blood Pressure 143/83 Blood Pressure 143/83 [Left] O2 Sat by Pulse 99 Oximetry 01/28/21 01/28/21 01/28/21 07:15 07:20 07:25 Temperature Pulse Rate 80 73 87 Respiratory Rate Blood Pressure Blood Pressure [Left] O2 Sat by Pulse 100 100 100 Oximetry 01/28/21 01/28/21 01/28/21 07:30 07:35 07:39 Temperature Pulse Rate 84 85 84 Respiratory Rate Blood Pressure 115/64 Blood Pressure [Left] O2 Sat by Pulse 99 100 Oximetry 01/28/21 01/28/21 01/28/21 07:40 07:46 07:51 Temperature Pulse Rate 81 81 84 Respiratory Rate Blood Pressure Blood Pressure [Left] O2 Sat by Pulse 99 99 99 Oximetry 01/28/21 01/28/21 01/28/21 07:56 08:01 08:06 Temperature Pulse Rate 80 78 81 Respiratory Rate Blood Pressure Blood Pressure [Left] O2 Sat by Pulse 99 99 98 Oximetry 01/28/21 01/28/21 01/28/21 08:09 08:11 08:16 Temperature Pulse Rate 81 77 83 Respiratory Rate Blood Pressure 133/78 Blood Pressure [Left] O2 Sat by Pulse 98 100 Oximetry 01/28/21 01/28/21 01/28/21 08:21 08:26 08:31 Temperature Pulse Rate 80 81 80 Respiratory Rate Blood Pressure Blood Pressure [Left] O2 Sat by Pulse 100 100 98 Oximetry 01/28/21 01/28/21 01/28/21 08:36 08:40 08:41 Temperature Pulse Rate 73 76 72 Respiratory Rate Blood Pressure 119/59 Blood Pressure [Left] O2 Sat by Pulse 99 98 Oximetry 01/28/21 01/28/21 01/28/21 08:46 08:51 08:56 Temperature Pulse Rate 114 H 97 H 91 H Respiratory Rate Blood Pressure Blood Pressure [Left] O2 Sat by Pulse 99 100 98 Oximetry 01/28/21 09:01 Temperature Pulse Rate 80 Respiratory Rate Blood Pressure Blood Pressure [Left] O2 Sat by Pulse 98 Oximetry - Exam Breasts: normal Abdomen: Present: normal appearance, normal bowel sounds, other (GRAVID) Vulva: both: normal Uterus: Present: normal, other (GRAVID) FHR: auscultation normal, category 1 Uterine Contraction Monitor Mode: External Cervical Dilatation: 5 Cervical Effacement Percentage: 60 station: -3 Uterine Contraction Pattern: Regular Uterine Tone Measurement Phase: Resting Uterine Contraction Intensity: Mild Extremities: normal - Labs Labs: Abnormal Labs 01/27/21 01/27/21 01/27/21 16:03 18:11 18:11 WBC 12.0 H POC Glucose 62 L Hemoglobin A1c 6.1 H 01/27/21 23:03 WBC POC Glucose 58 L Hemoglobin A1c Laboratory Results - last 24 hr 01/27/21 01/27/21 01/27/21 16:03 18:11 18:11 WBC 12.0 H RBC 4.40 Hgb 12.7 Hct 37.2 MCV 84 MCH 29 MCHC 34 RDW 13.7 Plt Count 336 POC Glucose 62 L Hemoglobin A1c Membranes Rupture Syphilis IgG Antibody Blood Type O POSITIVE Antibody Screen Negative 01/27/21 01/27/21 01/27/21 18:11 18:11 19:16 WBC RBC Hgb Hct MCV MCH MCHC RDW Plt Count POC Glucose 86 Hemoglobin A1c 6.1 H Membranes Rupture Syphilis IgG Antibody Nonreactive Blood Type Antibody Screen 01/27/21 01/27/21 01/27/21 21:08 23:03 Unknown WBC RBC Hgb Hct MCV MCH MCHC RDW Plt Count POC Glucose 75 58 L Hemoglobin A1c Membranes Rupture Negative Syphilis IgG Antibody Blood Type Antibody Screen 01/28/21 01/28/21 01/28/21 01:09 03:03 05:46 WBC RBC Hgb Hct MCV MCH MCHC RDW Plt Count POC Glucose 89 82 73 Hemoglobin A1c Membranes Rupture Syphilis IgG Antibody Blood Type Antibody Screen
[2021-01-28] MEDS: LACTATED RINGERS 1,000 ML IV SCH (09:21)
[2021-01-28] MEDS: OXYTOCIN DRIP 30 UNITS/500 ML BAG IV SCH ×2 (10:30→11:30)
--- NOTE | 2021-01-28 10:45 | Event Note ---
Date: 01/28/21 SVE 7-8/80%/-3. CAT I FHT with mild irreg uc. Pt was refusing augmentation of labor. After speaking with pt re labor pattern, she agreed to allow CNM to start Pitocin. IUPC was placed and Pitocin was started at 2 mu.
--- NOTE | 2021-01-28 13:12 | Event Note ---
Date: 01/28/21 SVE 8/90%/ -2; CAT 1 FHT; UC with MVU of 128. Pt is wanting an epidural. Anesthesia was notified. Dr Andrade is aware. Will continue monitoring with Pitocin.
[2021-01-28] MEDS ORDERED: METHYLERGONOVINE MALEATE 0.2 MG/ML VIAL IM ONE ×2 (15:00→15:06)
[2021-01-28] MEDS ORDERED: miSOPROStol 200 MCG TAB PR ONE (15:00)
[2021-01-28] MEDS ORDERED: OXYTOCIN 10 UNIT/1 ML INJ IM ONE (15:00)
[2021-01-28] MEDS ORDERED: OXYTOCIN 10 UNIT/1 ML INJ ONE (15:06)
[2021-01-28] MEDS ORDERED: miSOPROStol 200 MCG TAB ONE (15:06)
[2021-01-28] MEDS ORDERED: PROMETHAZINE 25 MG TAB PO PRN (15:27)
[2021-01-28] MEDS ORDERED: ONDANSETRON 4 MG/2 ML INJ IV PRN (15:27)
[2021-01-28] MEDS ORDERED: WITCH HAZEL/ GLYCERIN PAD TP PRN (15:27)
[2021-01-28] MEDS ORDERED: LANOLIN/ZINC/DIMETHICONE (LANSINOH) 7 GM TP PRN (15:27)
[2021-01-28] MEDS ORDERED: MAGNESIUM HYDROXIDE (MOM) ORAL LIQD UDC PO PRN (15:27)
[2021-01-28] MEDS ORDERED: diphenhydrAMINE 25 MG CAP PO PRN (15:27)
[2021-01-28] MEDS ORDERED: PROMETHAZINE 25 MG RECT SUPP PR PRN (15:27)
--- NOTE | 2021-01-28 16:02 | Procedure Note ---
OB Delivery Note - Delivery Date of Delivery: 01/28/21 Surgeon: MARTINE STRICKLAND Estimated blood loss: 200cc - Vaginal Delivery presentation: vertex Delivery position: OA Intrapartum events: meconium, prolonged active phase, mult.variable deceleratio Delivery induction: none Delivery augmentation: rupture of membranes, pitocin Delivery monitor: external FHT, external uterine, internal uterine Route of delivery: Delivery placenta: spontaneous Delivery cord: 3 umbilical vessels Episiotomy: none Delivery laceration: none Anesthesia: none Delivery comments: Called to for delivery. SVE 10/100%/+1 and pt was pushing. of a viable live male over an intact perineum. Spontaneous delivery of head and shoulders. was placed on mom's chest for skin to skin bonding while nurse dried and stimulated baby. Delayed cord clamping x 90 sec then cord was double clamped and FOB was allowed to cut the cord. Infant was taken to the infant warmer by NICU nurse for an asses. 8/9. Spontaneous delivery of an intact placenta with 3CV. Vag bleeding noted after the delivery of the placenta, and fundus was intermittently boggy. Homeostasis was maintained with Pitocin 10u IM, fundal massage and Cytotec 800mcg [place]. EBL 200cc, FW 4264Gms. Mom and baby was left in stable cond with nurse. - Infant A at 1 minute: 8 at 5 minutes: 9 Gender: Male (FW 4264 Gms)
[2021-01-28] MEDS: IBUPROFEN 600 MG TAB PO SCH (17:39)
[2021-01-29] MEDS: IBUPROFEN 600 MG TAB PO SCH ×5 (00:15→22:59)
[2021-01-29 05:57] LABS: Hematocrit 33.2 % (30.3-42.9); Hemoglobin 11.2 gm/dl (10.1-14.3)
--- NOTE | 2021-01-29 22:14 | Progress Note ---
Assessment and Plan - Patient Problems (1) GDM (gestational diabetes mellitus) Current Visit: Yes Status: Acute Plan to address problem: Hx of glyburide during , d/c'd with normal CBGs --Continue to monitor CBGs per routine (2) Status post vaginal delivery Current Visit: Yes Status: Acute Plan to address problem: Routine care, meeting goals. --Anticipate AM discharge Subjective - Subjective Date of service: 01/29/21 Principal diagnosis: IUP@ 38.4 wks with GDM Interval history: Patient doing well. Pain well controlled. Patient otherwise meeting goals. Tolerating po. Urinating spontaneously. S/p normal BM. Breast/bottle feeding. Patient reports: appetite normal, voiding normally, pain well controlled, flatus, bowel movement, ambulating normally [place]: doing well Objective - Vital Signs Latest vital signs: Vital Signs Temp Pulse Resp BP BP Pulse Ox 01/29/21 17:32 20 01/29/21 16:05 98.1 F 77 18 104/66 98 01/29/21 09:03 98.2 F 93 H 18 113/65 98 01/29/21 00:19 98.7 F 89 20 123/71 97 01/29/21 00:15 18 Intake and Output 01/29/21 01/29/21 01/29/21 07:59 15:59 23:59 Intake Total 200 Balance 200 Intake: Oral 200 Other: Total, Intake Amount 200 # Voids Void 1 1 1 - Exam Abdomen: Present: normal appearance, normal bowel sounds Uterus: Present: fundal height below umbilicus Extremities: Present: normal
--- NOTE | 2021-01-29 22:17 | Discharge Summary ---
Providers - Providers Date of Admission: 01/27/21 17:38 Date of discharge: 01/30/21 Attending physician: RAMO BOATENG Primary care physician: RAMO BOATENG Hospitalization Reason for admission: active labor Delivery: Laceration: none complications: uterine atony (improved with IM pitocin) baby: male Hospital course: 30 year old admitted to L&D for active labor. Patient received care at [facility] and she brings records with her. LMP 05/02/2020. EDC 02/06/2021. significant for the following: GDM (on Glyburide, pt. states blood sugars not well controlled), obesity, history of macrosomic baby with her last (10 lb) with shoulder dystocia at delivery, LGA with this (greater than 90th percentile and AC greater than 90th percentile according to records), UTI (treated with Macrobid). labs are as follows: O+, antibody screen negative, rubella immune, hepatitis B surface antigen negative, HIV negative, RPR nonreactive, gonorrhea negative, chlamydia negative, GBS negative 1 hour sugar test 177 (followed by 3 hour OGTT with 2 abnormal values), AFP negative, cystic fibrosis negative, fragile X negative, pap smear negative. s/p uncomplicated on 01/28/21. Glyburide discontinued with normal CBGs . Patient met all goals by day 1. Discharge in good condition on 01/30/21 on PPD2. Condition at discharge: Good Disposition: DC-01 TO HOME OR SELFCARE - Discharge Diagnoses (1) GDM (gestational diabetes mellitus) Status: Acute Qualifiers: Gestational diabetes mellitus control: oral hypoglycemic-controlled (2) Status post vaginal delivery Status: Acute Plan - Provider Discharge Summary Activity: routine Diet: other (diabetic) Instructions: routine Additional instructions: [] Smoking cessation referral if applicable(refer to patient education folder for contact #) [] Refer to [facility] Booklet Call your doctor immediately for: * Fever > 100.5 * Heavy vaginal bleeding ( >1 pad per hour) * Severe persistent headache * Shortness of breath * Reddened, hot, painful area to leg or breast * Drainage or odor from incision. * Keep incision clean and dry at all times and follow doctor's instructions regarding bathing/showering - Follow up plan Follow up: RAMO BOATENG MD [Primary Care Provider] - 6 Weeks
[2021-01-30] MEDS: IBUPROFEN 600 MG TAB PO SCH ×2 (05:41→11:05)
[2021-01-30] MEDS ORDERED: TETANUS,DIPH,PERTUSS(ACELL) VACCINE 0.5 ML SYRINGE IM ONE (06:00)
[2021-01-30 09:00] VITALS: BP 124/68
== END 2021-01-30 12:15 | disposition home or self-care (01) | DRG 807 ==
LOC: TRG 14:34 → APU 14:36 → LD 17:33 → TRG 17:38 → OB 01-28 18:15
PROVIDERS: ADMIT Obstetrics & Gynecology; ATTEND Obstetrics & Gynecology
PROC: 10E0XZZ Delivery of Products of Conception, External Approach (ICD-10-PCS; principal; 2021-01-28)
PROC: 10907ZC Drainage of Amniotic Fluid, Therapeutic from Products of Conception, Via Natural or Artificial Opening (ICD-10-PCS; 2021-01-28)
DX: O24.429 Gestational diabetes mellitus in childbirth, unspecified control (principal); Z37.0 Single live birth; O99.214 Obesity complicating childbirth; Z20.822 Contact with and (suspected) exposure to COVID-19; E66.9 Obesity, unspecified; Z3A.38 38 weeks gestation of pregnancy; O77.0 Labor and delivery complicated by meconium in amniotic fluid; O76 Abnormality in fetal heart rate and rhythm complicating labor and delivery
CPT/HCPCS: 36415; 76816; 82962; 83036; 84112; 85014; 85018; 85027; 86592; 86850; 86900; 86901; 90715; G0378; J2590; J7120; U0003

== ENCOUNTER 2022-06-30 00:25 | Outpatient (CLI) | payer SELFPAY ==
[2022-06-30 01:01] VITALS: BP 133/69
--- NOTE | 2022-06-30 03:31 | Ultrasound Report ---
ULTRASOUND OBSTETRIC Indication: PETRA, EFW, PLACENTA Findings: There is a single intrauterine . BPD = 6.5 cm = 26 weeks, 1 day(s). Head circumference = 23.6 cm = 25 weeks, 5 day(s). Abdominal circumference = 20.4 cm = 25 weeks, severe day(s). Femur length = 4.4 cm = 24 weeks, 4 day(s). heart rate is 137 beats per minute. Estimated weight is 752 grams position is cephalic. Cervix appears closed. movement is present. Placenta is posterior and grade 1 . Amniotic fluid volume appears normal. Maternal adnexa appear normal. Impression: 1. Single living intrauterine with estimated sonographic age of 25 weeks, 3 day(s). 2. Placenta abruption not visualized at this time. Signer Name: Kei Marmolejo MD Signed: 06/30/2022 3:26 AM Workstation Name: [id number]
== END 2022-06-30 03:34 | disposition left against medical advice (07) ==
LOC: TRG 00:25 → APU 00:26 → TRG 03:34
PROVIDERS: ATTEND Obstetrics & Gynecology
DX: O26.892 Other specified pregnancy related conditions, second trimester (principal); R10.9 Unspecified abdominal pain; R11.10 Vomiting, unspecified; R19.7 Diarrhea, unspecified; Z3A.24 24 weeks gestation of pregnancy
CPT/HCPCS: 76816